=== PATIENT | female | born 1990 | race Caucasian/White ===

== ENCOUNTER → 2018-11-25 | Outpatient (CLI) | payer BC | LOC: M WUC 13:38 | PROVIDERS: ATTEND Advanced Practice Midwife | DX: O20.0 Threatened abortion (principal); Z3A.00 Weeks of gestation of pregnancy not specified ==

== ENCOUNTER → 2018-11-27 | Outpatient (REF) | payer BC | LOC: M LABDRWAD 18:25 | PROVIDERS: ATTEND Advanced Practice Midwife | DX: O20.0 Threatened abortion (principal) ==

== ENCOUNTER → 2019-01-02 | Outpatient (CLI) | payer BC ==
[2019-01-02 20:06] LABS: BASO % 0.3 % (0.0-1.0); EOS # 0.1 10^3/uL (0.0-0.50); HEMATOCRIT 39.3 % (36.0-47.0); HEMOGLOBIN 13.5 g/dl (12.0-15.5); LYMPH # 2.9 10^3/uL (1.5-6.5); LYMPH % 24.9 % (24.0-44.0); MEAN CORPUSCULAR HEMOGLOBIN 29.9 pg (27.0-33.0); MEAN CORPUSCULAR HGB CONC 34.4 g/dl (32.0-36.5); MEAN CORPUSCULAR VOLUME 87.1 fl (80.0-96.0); MONO # 0.7 10^3/uL (0.0-0.8); MONO % 5.6 % (0.0-5.0); NEUTROPHILS # 7.9 10^3/uL (1.8-7.7); NEUTROPHILS % 67.8 % (36.0-66.0); PLATELET COUNT, AUTOMATED 243 10^3/uL (150-450); RED BLOOD COUNT 4.51 10^6/uL (4.00-5.40); WHITE BLOOD COUNT 11.6 10^3/uL (4.0-10.0)
[2019-01-02 21:41] LABS: CHLAMYDIA DNA AMPLIFICATION NEGATIVE (NEGATIVE); GC DNA AMPLIFICATION NEGATIVE (NEGATIVE)
== END ==
LOC: M LABDRWAD 18:37
PROVIDERS: ATTEND Specialist
DX: Z34.01 Encounter for supervision of normal first pregnancy, first trimester (principal); Z3A.00 Weeks of gestation of pregnancy not specified

== ENCOUNTER → 2019-01-03 | Outpatient (REF) | payer BC ==
[2019-01-05 11:41] LABS: HIV 1&2 SCREEN CENTAUR NEGATIVE (NEGATIVE); RUBELLA IgG QUALITATIVE IMMUNE (IMMUNE)
== END ==
LOC: M LABDRWAD 19:31
PROVIDERS: ATTEND Specialist
DX: Z34.01 Encounter for supervision of normal first pregnancy, first trimester (principal); Z3A.01 Less than 8 weeks gestation of pregnancy

== ENCOUNTER → 2019-01-05 | Outpatient (REF) | payer BC | LOC: M LAB REF 17:17 | PROVIDERS: ATTEND Advanced Practice Midwife | DX: Z34.01 Encounter for supervision of normal first pregnancy, first trimester (principal); Z3A.00 Weeks of gestation of pregnancy not specified ==

== ENCOUNTER → 2019-02-26 | Outpatient (CLI) | payer BC ==
--- NOTE | 2019-02-27 04:00 | REP ---
Clinical: Anatomical evaluation. Comparison: None . Findings: Examination demonstrates a single live intrauterine in cephalic presentation. motion is identified by technologist. Placenta is noted posterior fundal and grade grade zero without evidence for placenta previa or abruption. Amniotic fluid volume is normal. Cervix measures 4.0 cm in length and appears closed. No evidence for nuchal cord. Gestational age by LMP 20 weeks 0 days with JONATHAN 07/16/2019 . Gestational age by current measurements 20 weeks 0 day with JONATHAN 07/16/2019 . FHR equals 160 beats per minute. BPD 4.9 cm 20 weeks 5 days HC 17.3 cm 19 weeks 6 days AC 14.8 cm 20 weeks 0 days FL 3.1 cm 19 weeks 4 days HL 3.0 cm 19 week 6 days HC/AC ratio 1.17 Estimated weight 317 grams ( 42nd percentile). Anatomical assessment demonstrates normal structures including cranium, choroid plexus, cavum, facial features, lungs, four-chamber heart/ventricular outflow tracts, diaphragm, stomach, cord insertion/three-vessel cord, bladder, and extremities. Limited evaluation of the cerebellum/posterior fossa, kidneys, and spine. Impression: Single live intrauterine in cephalic presentation demonstrating appropriate interval growth. Anatomical limitations as noted above may warrant reevaluation and follow-up. No gross abnormality identified. Electronically Signed by Leland Holden MD 02/27/2019 03:52 A
== END ==
LOC: M RAD 12:43
PROVIDERS: ATTEND Advanced Practice Midwife
DX: Z34.82 Encounter for supervision of other normal pregnancy, second trimester (principal); Z36.89 Encounter for other specified antenatal screening; Z3A.20 20 weeks gestation of pregnancy

== ENCOUNTER → 2019-03-15 | Outpatient (CLI) | payer BC ==
--- NOTE | 2019-03-15 10:30 | REP ---
Clinical: Anatomical evaluation. Comparison: 02/26/2019 . Findings: Examination demonstrates a single live intrauterine in cephalic presentation. motion is identified by technologist. Placenta is noted posterior fundal and grade grade 1 without evidence for placenta previa or abruption. Amniotic fluid volume is normal. Cervix measures 4.6 cm in length and appears closed. No evidence for nuchal cord. Gestational age by LMP 22 weeks 3 days with JONATHAN 07/16/2019 . Gestational age by current measurements 22 weeks 6 days with JONATHAN and 2019 . FHR equals 141 beats per minute. Estimated weight 538 grams ( 58 percentile). Anatomical assessment demonstrates normal structures including cranium, choroid plexus, cavum, cerebellum/posterior fossa, facial features, lungs, four-chamber heart/ventricular outflow tracts, diaphragm, stomach, cord insertion/three-vessel cord, kidneys/bladder, spine, and extremities. Impression: Single live intrauterine in cephalic presentation demonstrating appropriate interval growth. Anatomical assessment is complete and normal. No gross abnormalities are identified. Electronically Signed by Leland Holden MD 03/15/2019 10:22 A
== END ==
LOC: M RAD 09:02
PROVIDERS: ATTEND Obstetrics & Gynecology
DX: Z34.82 Encounter for supervision of other normal pregnancy, second trimester (principal); Z36.89 Encounter for other specified antenatal screening; Z3A.22 22 weeks gestation of pregnancy

== ENCOUNTER → 2019-04-21 | Outpatient (CLI) | payer BC ==
[2019-04-21 18:06] LABS: HEMATOCRIT 35.1 % (36.0-47.0); MEAN CORPUSCULAR HEMOGLOBIN 30.5 pg (27.0-33.0); MEAN CORPUSCULAR HGB CONC 34.2 g/dl (32.0-36.5); MEAN CORPUSCULAR VOLUME 89.3 fl (80.0-96.0); PLATELET COUNT, AUTOMATED 196 10^3/uL (150-450); RED BLOOD COUNT 3.93 10^6/uL (4.00-5.40); WHITE BLOOD COUNT 12.5 10^3/uL (4.0-10.0)
== END ==
LOC: M LABDRWAD 14:27
PROVIDERS: ATTEND Obstetrics & Gynecology
DX: Z34.82 Encounter for supervision of other normal pregnancy, second trimester (principal); Z3A.00 Weeks of gestation of pregnancy not specified
CPT/HCPCS: 36415; 82950; 85027; 86850; 86900; 86901; J2790

== ENCOUNTER → 2019-06-12 | Outpatient (REF) | payer BC | LOC: M LAB REF 13:38 | PROVIDERS: ATTEND Advanced Practice Midwife | DX: Z34.03 Encounter for supervision of normal first pregnancy, third trimester (principal); Z3A.00 Weeks of gestation of pregnancy not specified ==

== ENCOUNTER 2019-07-09 07:13 | Inpatient (IN) | payer BC ==
[~2019-07-09] VITALS: Ht 170.2 cm; Wt 113.1 kg
[~2019-07-09 07:13] MED LIST: VITA65TA PO; ZANT150T40 PO
[2019-07-09 07:54] VITALS: BP 125/81
[2019-07-09] MEDS ORDERED: BICITRA 30ML SOLN UDC PO ONE (08:00)
[2019-07-09] MEDS ORDERED: LR 1,000 ML IV SCH ×3 (08:00→12:30)
[2019-07-09] MEDS ORDERED: LACTATED RINGER'S 1000 ML IV ONE (08:00)
[2019-07-09 08:42] LABS: HEMATOCRIT 35.4 % (36.0-47.0); HEMOGLOBIN 11.9 g/dl (12.0-15.5); MEAN CORPUSCULAR HEMOGLOBIN 28.1 pg (27.0-33.0); MEAN CORPUSCULAR HGB CONC 33.6 g/dl (32.0-36.5); MEAN CORPUSCULAR VOLUME 83.7 fl (80.0-96.0); PLATELET COUNT, AUTOMATED 202 10^3/uL (150-450); RED BLOOD COUNT 4.23 10^6/uL (4.00-5.40); WHITE BLOOD COUNT 12.5 10^3/uL (4.0-10.0)
[2019-07-09] MEDS ORDERED: OXYTOCIN INJ 10 UNITS/ML VIAL (J2590) As Ordered ONE ×2 (08:56→11:45)
[2019-07-09] MEDS ORDERED: MORPHINE PRES-FREE INJ 10 MG/10 ML VIAL (J2274) As Ordered ONE (08:57)
[2019-07-09 09:42] VITALS: BP 120/67
[2019-07-09] MEDS ORDERED: NALBUPHINE HCL 10 MG/ML AMP (J2300) IV PRN ×2 (10:40→12:30)
[2019-07-09] MEDS ORDERED: METOCLOPRAMIDE INJ 10MG/2ML VIAL (J2765) IV PRN (10:40)
[2019-07-09] MEDS ORDERED: NALOXONE INJ 0.4 MG/1 ML VIAL (J2310) IV PRN ×2 (10:40)
[2019-07-09] MEDS ORDERED: diphenhydrAMINE INJ 50MG/ML VIAL (J1200) IV PRN (10:40)
[2019-07-09] MEDS ORDERED: ONDANSETRON 4MG/2ML VIAL (J2405) IV PRN ×3 (10:40→12:30)
[2019-07-09] MEDS ORDERED: dexameTHASONE 4 MG/ML 1ML VIAL (J1100) As Ordered ONE (11:08)
[2019-07-09] MEDS ORDERED: ONDANSETRON 4MG/2ML VIAL (J2405) As Ordered ONE (11:08)
[2019-07-09] MEDS ORDERED: KETOROLAC 60 MG/2 ML VIAL (J1885) As Ordered ONE (11:08)
[2019-07-09] MEDS ORDERED: PHENYLephrine HCL 500 MCG/5 ML (100MCG/ML) SYRINGE (J2370) As Ordered ONE (11:23)
[2019-07-09] MEDS ORDERED: OXYTOCIN DRIP 30 UNITS in APPROPRIATE DILUENT 1 EA IV SCH (12:01)
[2019-07-09] MEDS ORDERED: OXYC1TAB23 PO (12:08)
[2019-07-09] MEDS ORDERED: IBUP-1022 PO (12:09)
[2019-07-09] MEDS ORDERED: RHOGAM 300 MCG (1500 IU) INJ (J2790) IM SCH (12:15)
[2019-07-09] MEDS ORDERED: MEASLES,MUMPS,RUBELLA VACCINE INJ (MMR-II) (90707) SC SCH (12:15)
[2019-07-09] MEDS ORDERED: PERCOCET 5MG/325MG TAB PO PRN ×2 (12:15)
[2019-07-09] MEDS ORDERED: DOCUSATE SODIUM 100 MG CAP PO PRN (12:15)
[2019-07-09] MEDS ORDERED: fentaNYL 100 MCG/2 ML INJECTION (J3010) As Ordered ONE (12:28)
[2019-07-09] MEDS ORDERED: OXYTOCIN 30 UNITS IN 0.9% NaCl 500ML IV BAG (J2590) As Ordered ONE (12:29)
[2019-07-09] MEDS: fentaNYL 100 MCG/2 ML INJECTION (J3010) IV PRN ×2 (12:31→12:42)
[2019-07-09 13:35] VITALS: BP 141/86
[2019-07-09 14:05] VITALS: BP 133/76
[2019-07-09 15:02] VITALS: BP 143/88
[2019-07-09] MEDS: KETOROLAC 30 MG/ML VIAL (J1885) IV SCH (18:04)
[2019-07-09 21:59] VITALS: BP 134/83
[2019-07-10] MEDS: KETOROLAC 30 MG/ML VIAL (J1885) IV SCH ×2 (00:28→05:58)
[2019-07-10 02:28] VITALS: BP 122/66
[2019-07-10 06:04] VITALS: BP 120/74
[2019-07-10 07:12] LABS: HEMATOCRIT 28.7 % (36.0-47.0); MEAN CORPUSCULAR HEMOGLOBIN 27.7 pg (27.0-33.0); MEAN CORPUSCULAR HGB CONC 33.4 g/dl (32.0-36.5); MEAN CORPUSCULAR VOLUME 82.7 fl (80.0-96.0); PLATELET COUNT, AUTOMATED 176 10^3/uL (150-450); RED BLOOD COUNT 3.47 10^6/uL (4.00-5.40)
[2019-07-10 07:16] LABS: HEMOGLOBIN 9.6 g/dl (12.0-15.5)
--- NOTE | 2019-07-10 07:32 | IPNPDOC ---
Text Note Date of Service The patient was seen on 07/10/19. NOTE Day 1 Status post primary LTCS, uncomplicated Subjective Pain is well controlled. Lochia decreasing and minimal. Voiding spontaneously. Tolerating a regular diet. Ambulating without assistance. Denies any subjective fever/chills/nausea/vomiting/headache/visual changes/shortness of breath/chest pain. Breast feeding. Objective Vitals: Normotensive, normal heart rate, afebrile, adequate urine output. Heart: regular, rate, and rhythm. no murmurs/gallops/rubs Lungs: clear to auscultation bilaterally, no wheezes/crackles/rales/ronchi Abd: soft, nontender, nondistended, uterine fundus at 1 cm below umbilicus and firm; dressing is dry and intact Ext: no significant edema, nontender, negative Susu's bilaterally. Assessment/Plan: Postop day 1. Recovering well. Hemodynamically stable, afebrile, good pain control. -Routine care -Discharge to home -Routine infectious, fever, pain, and bleeding precautions reviewed VS,Tessy, I+O VS, Tessy, I+O Laboratory Tests 07/09/19 08:13 Red Blood Count 4.23, Mean Corpuscular Volume 83.7, Mean Corpuscular Hemoglobin 28.1, Mean Corpuscular Hemoglobin Concent 33.6, Red Cell Distribution Width 12.6 07/10/19 06:32 Red Blood Count 3.47 L, Mean Corpuscular Volume 82.7, Mean Corpuscular Hemoglobin 27.7, Mean Corpuscular Hemoglobin Concent 33.4, Red Cell Distribution Width 12.7 Vital Signs Date Time Temp Pulse Resp B/P (MAP) Pulse Ox O2 Delivery O2 Flow Rate FiO2 07/10/19 06:04 97.7 68 16 120/74 (14) 97 I&O- Last 24 Hours up to 6 AM 07/10/19 06:00 Intake Total 1720 ml Output Total 1150 ml Balance 570 ml GME ATTESTATION GME ATTESTATION My faculty preceptor for this patient encounter was physically present during the encounter and was fully available. All aspects of the patient interview, examination, medical decision making process, and medical care plan development were reviewed and approved by the faculty preceptor. The faculty preceptor is aware and concurs with the plan as stated in the body of this note and will attest to such by his/her cosignature. HERMAN PARK DO Jul 10, 2019 07:32
[2019-07-10] MEDS: PRENATAL VITAMINS CHEWABLE TABLET PO SCH (08:40)
--- NOTE | 2019-07-10 09:19 | RO ---
DATE OF PROCEDURE: 07/09/2019 PREOPERATIVE DIAGNOSIS: 39 weeks breech. POSTOPERATIVE DIAGNOSIS: 39 weeks breech. PROCEDURE: Primary low transverse section. SURGEON: Aubrey March MD CONTAINER COORDINATOR: UJSTYN Martinez DO ANESTHESIA: Spinal. ESTIMATED BLOOD LOSS: 600 mL. URINE OUTPUT: 75 mL. FINDINGS: 7 pound 8 ounce, 3390 gram male . scores of 8 and 9. Moses breech position. 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 She has normal fallopian tubes and ovaries bilaterally. She had a small uterus noted on the right side. OPERATIVE SUMMARY: The patient was taken to the operating room where spinal anesthesia was induced. She was prepped and draped in a sterile fashion in supine position. A Etienne catheter was placed. A Pfannenstiel skin incision was made with a scalpel and carried through to the fascia. The fascia was nicked and extended. The fascia was dissected off the rectus muscles. The rectus muscles were divided and the peritoneal cavity was entered. A bladder flap was created. A curvilinear incision was made in the lower uterine segment until bulging membranes were noted. This was extended manually. The was delivered from the moses breech position using standard maneuvers without difficulty. The cord was doubly clamped and cut. The infant was handed off to the awaiting nurses. The placenta was expressed. The uterus was exteriorized and cleared of clots and debris. The uterine incision was closed with #0 Vicryl in a running locked fashion. A second imbricating layer of #0 Vicryl was placed. The peritoneum was closed with #2-0 Vicryl in a running fashion. The fascia was closed with #0 Vicryl in a running fashion. The deep layer was irrigated and closed with #2-0 chromic. The skin was closed with #4-0 Monocryl subcuticular sutures. Sponges, instruments, and needles counts were correct. Martha Quintana CNM assisted throughout the procedure, she helped created all layers of the incision. She helped create the hysterotomy and delivered the fetus. She helped closed all subsequent layers.
[2019-07-10 10:00] VITALS: BP 134/84
[2019-07-10 14:00] VITALS: BP 126/82
[2019-07-10] MEDS: IBUPROFEN 800 MG TAB PO SCH ×2 (14:02→21:53)
[2019-07-10 18:04] VITALS: BP 125/73
[2019-07-10 22:08] VITALS: BP 133/63
[2019-07-11 06:02] VITALS: BP 118/73
[2019-07-11] MEDS: IBUPROFEN 800 MG TAB PO SCH (06:10)
[2019-07-11] MEDS: PRENATAL VITAMINS CHEWABLE TABLET PO SCH (09:26)
== END 2019-07-11 12:21 | disposition home or self-care (01) | DRG 540 ==
LOC: M LDI 07:13 → M OBS 13:24
PROVIDERS: ADMIT Specialist; ATTEND Specialist
PROC: 10D00Z1 Extraction of Products of Conception, Low, Open Approach (ICD-10-PCS; principal; 2019-07-09 09:30)
DX: O32.1XX0 Maternal care for breech presentation, not applicable or unspecified (principal); Z3A.39 39 weeks gestation of pregnancy; Z37.0 Single live birth

== ENCOUNTER 2019-09-02 22:11 | Emergency (ER) | payer BC ==
[~2019-09-02] VITALS: Ht 170.2 cm; Wt 93.2 kg
[~2019-09-02 22:11] MED LIST changes: +IBUP-1022 PO; +OXYC1TAB23 PO
[2019-09-02 22:12] VITALS: BP 147/88
[2019-09-02] MEDS ORDERED: OMEP10CASR PO (22:16)
[2019-09-02 22:52] LABS: BASO % 0.3 % (0.0-1.0); EOS # 0.5 10^3/uL (0.0-0.5); HEMATOCRIT 43.3 % (36.0-47.0); HEMOGLOBIN 13.8 g/dl (12.0-15.5); LYMPH # 3.9 10^3/uL (1.5-5.0); LYMPH % 41.6 % (24.0-44.0); MEAN CORPUSCULAR HEMOGLOBIN 26.9 pg (27.0-33.0); MEAN CORPUSCULAR HGB CONC 31.9 g/dl (32.0-36.5); MEAN CORPUSCULAR VOLUME 84.4 fl (80.0-96.0); MONO # 0.7 10^3/uL (0.0-0.8); MONO % 7.3 % (0.0-5.0); NEUTROPHILS # 4.3 10^3/uL (1.5-8.5); NEUTROPHILS % 45.6 % (36.0-66.0); PLATELET COUNT, AUTOMATED 273 10^3/uL (150-450); RED BLOOD COUNT 5.13 10^6/uL (4.00-5.40); WHITE BLOOD COUNT 9.4 10^3/uL (4.0-10.0)
[2019-09-02 23:12] LABS: ALBUMIN 3.9 GM/DL (3.2-5.2); ALT/SGPT 16 U/L (12-78); BILIRUBIN,DIRECT < 0.1 MG/DL (0.0-0.2); BILIRUBIN,TOTAL 0.8 MG/DL (0.2-1.0); BLOOD UREA NITROGEN 14 MG/DL (7-18); CALCIUM LEVEL 8.6 MG/DL (8.5-10.1); CARBON DIOXIDE LEVEL 27 MEQ/L (21-32); CHLORIDE LEVEL 109 MEQ/L (98-107); CREATININE FOR GFR 0.91 MG/DL (0.55-1.30); GLOMERULAR FILTRATION RATE > 60.0 (>60); GLUCOSE, FASTING 104 MG/DL (70-100); LIPASE 136 U/L (73-393); POTASSIUM SERUM 4.2 MEQ/L (3.5-5.1); SODIUM LEVEL 142 MEQ/L (136-145); TOTAL PROTEIN 7.6 GM/DL (6.4-8.2)
[2019-09-02] MEDS ORDERED: ISOVUE-370 76% 100ML VIAL (Q9967) As Ordered ONE (23:30)
[2019-09-02] MEDS: GASTROGRAFIN SOLUTION 30ML PO SCH (23:53)
--- NOTE | 2019-09-03 00:02 | REPVR ---
PROCEDURE INFORMATION: Exam: CT Abdomen And Pelvis With Contrast Exam date and time: 09/02/2019 11:34 PM Clinical history: 29 years old, female; Abdominal pain; Localized; Upper; Additional info: Upper abd pain TECHNIQUE: Imaging protocol: Computed tomography of the abdomen and pelvis with intravenous contrast. Radiation optimization: All CT scans at this facility use at least one of these dose optimization techniques: automated exposure control; mA and/or kV adjustment per patient size (includes targeted exams where dose is matched to clinical indication); or iterative reconstruction. Contrast material: ISOVUE 370; Contrast volume: 100 ml; Contrast route: IV; COMPARISON: US OBS FOLL UP OR REPEAT EACH GES 03/15/2019 9:00 AM FINDINGS: Lungs: The imaged lung bases are clear. Heart: No cardiomegaly. There is a trace amount of fluid in the pericardial sac. Liver: No liver lesion is seen. The contour of the liver is smooth. The liver is enlarged and measures 17.2 cm in craniocaudal dimension at the level of the right midclavicular line. Gallbladder and bile ducts: No calcified gallstones are seen in the gallbladder. However, there is a 3 mm calcified gallstone in the cystic duct (image 49 of the coronal series 202 and image 60 of the sagittal series 203). There is a small amount of pericholecystic fluid and pericholecystic inflammatory fat stranding. These findings are compatible with acute cholecystitis. No dilation of the intrahepatic or extrahepatic bile ducts is noted. The common bile duct is normal in caliber and measures 5 mm in diameter. No calcified gallstones are seen in the common bile duct. Pancreas: Normal. No ductal dilation. Spleen: Normal. No splenomegaly. Adrenals: Normal. No mass. Kidneys and ureters: The kidneys are normal in appearance. No renal lesion is identified. No calculi are seen in the kidneys or ureters. There is no hydronephrosis or hydroureter. There are no wedge-shaped areas of low attenuation in the kidneys to suggest pyelonephritis. There is no renal abscess or perinephric fluid collection. Stomach and bowel: There is no evidence for a bowel obstruction, diverticulosis, diverticulitis, colitis, pneumatosis intestinalis, intussusception, volvulus, or perforated viscus. Appendix: Normal. No evidence for appendicitis. Intraperitoneal space: Unremarkable. No fluid collection. No free air. Retroperitoneal space: Unremarkable. No fluid collection. No mass. Vasculature: The abdominal aorta is patent, normal in caliber, and there is no dissection. The renal arteries, celiac artery, superior mesenteric artery, inferior mesenteric artery, iliac arteries, and common femoral arteries are patent. The iliac veins, inferior vena cava, hepatic veins, portal veins, splenic vein, superior mesenteric vein, inferior mesenteric vein, and renal veins are patent. Lymph nodes: Normal. No enlarged lymph nodes. Bladder: Unremarkable. No calculi or masses are noted in the bladder. Reproductive: The uterus is anterverted and unremarkable. The ovaries are unremarkable. Bones/joints: The imaged bony structures are intact. There is no suspicious osteolytic or osteoblastic lesion. There is a lumbosacral transitional vertebra, and there is broadening of the both transverse proceses of the lumbosacral transitional vertebra, which are fused to both sides of the sacrum (Castellvi type IIIb lumbosacral transitional vertebra). Soft tissues: There is a tiny fat containing umbilical hernia. IMPRESSION: 1. Acute cholecystitis. 2. Hepatomegaly. Electronically signed by: Andrea Martinez On 09/03/2019 00:01:57 AM
[2019-09-03] MEDS: GASTROGRAFIN SOLUTION 30ML PO SCH (00:16)
[2019-09-03] MEDS ORDERED: NORC1TAB7 PO (01:22)
[2019-09-03] MEDS ORDERED: AUGM875T28 PO (01:22)
[2019-09-03] MEDS ORDERED: AUGMENTIN 875 MG TAB PO ONE (01:30)
--- NOTE | 2019-09-03 07:06 | ED PDOC ---
Post-Departure Follow-Up radiology report faxed to Ashley Gann MD Sep 03, 2019 07:06
== END 2019-09-03 01:37 | disposition home or self-care (01) ==
LOC: M ED 22:11
DX: K80.42 Calculus of bile duct with acute cholecystitis without obstruction (principal); R16.0 Hepatomegaly, not elsewhere classified; Z79.2 Long term (current) use of antibiotics; Z79.899 Other long term (current) drug therapy
CPT/HCPCS: 36415; 74177; 80048; 80076; 81001; 83690; 85025; 87086; 99284; Q9967

== ENCOUNTER 2019-09-24 12:23 | Day surgery (SDC) | payer BC, OTHER ==
[~2019-09-24] VITALS: Ht 170.2 cm; Wt 94.8 kg
[~2019-09-24 12:23] MED LIST changes: +AMPICILLIN SOD/SULBACTAM SOD 3 GM in D5W MINI-BAG PLUS 100 ML IV ONE; +AUGM875T28 PO; +LR 1,000 ML IV ONE; +NORC1TAB7 PO; +OMEP10CASR PO
[2019-09-24] MEDS ORDERED: LIDOCAINE 1% SDV INJ 30 ML VIAL As Ordered ONE (14:10)
[2019-09-24] MEDS ORDERED: BUPIVACAINE HCL 0.25% 30 ML VIAL As Ordered ONE (14:10)
[2019-09-24] MEDS ORDERED: MIDAZOLAM INJ 2 MG/2 ML VIAL (J2250) As Ordered ONE (15:34)
[2019-09-24] MEDS ORDERED: fentaNYL 100 MCG/2 ML INJECTION (J3010) As Ordered ONE ×2 (15:35→17:22)
[2019-09-24] MEDS ORDERED: PROPOFOL 200 MG/20 ML VIAL As Ordered ONE (15:37)
[2019-09-24] MEDS ORDERED: ROCURONIUM BROMIDE 50 MG/5 ML VIAL As Ordered ONE ×2 (15:37→17:25)
[2019-09-24] MEDS ORDERED: ONDANSETRON 4MG/2ML VIAL (J2405) As Ordered ONE (15:37)
[2019-09-24] MEDS ORDERED: dexameTHASONE 4 MG/ML 1ML VIAL (J1100) As Ordered ONE (15:37)
[2019-09-24] MEDS ORDERED: LIDOCAINE 2% INJ 100 MG/5 ML SDV (FOR ANES.) As Ordered ONE (15:37)
[2019-09-24] MEDS ORDERED: ACETAMINOPHEN 1000MG 100ML IV BTL (OFIRMEV) (J0131 PER 10MG) As Ordered ONE (17:18)
[2019-09-24] MEDS ORDERED: SUGAMMADEX SODIUM 500 MG/5 ML VIAL (BRIDION) As Ordered ONE (17:38)
[2019-09-24] MEDS ORDERED: KETOROLAC 60 MG/2 ML VIAL (J1885) As Ordered ONE (17:56)
[2019-09-24] MEDS ORDERED: LR 1,000 ML IV SCH (18:30)
[2019-09-24] MEDS ORDERED: HYDROMORPHONE HCL 0.5 MG/ 0.5 ML SYRINGE (J1170 PER 1) IV PRN (18:30)
[2019-09-24] MEDS ORDERED: NORCO, ANEXSIA 5/325MG TABLET (HYDROcodone/ACETAMINOPHEN) PO PRN ×2 (18:30→18:45)
[2019-09-24] MEDS ORDERED: METOCLOPRAMIDE INJ 10MG/2ML VIAL (J2765) IV PRN (18:30)
[2019-09-24] MEDS: fentaNYL 100 MCG/2 ML INJECTION (J3010) IV PRN ×4 (18:30→19:00)
[2019-09-24] MEDS ORDERED: ONDANSETRON 4MG/2ML VIAL (J2405) IV PRN ×2 (18:30→18:45)
[2019-09-24] MEDS: PERCOCET 5MG/325MG TAB PO PRN ×2 (18:45→19:22)
[2019-09-24 21:00] VITALS: BP 110/81
[2019-09-25] MEDS ORDERED: KETOROLAC 30 MG/ML VIAL (J1885) IV PRN
--- NOTE | 2019-09-25 13:06 | ROOPDOC ---
[facility] Report Of Operation Report of Operation DATE OF PROCEDURE: 09/24/19 PREPROCEDURE DIAGNOSES: Cholelithiasis, history of acute cholecystitis. POSTPROCEDURE DIAGNOSES: Cholelithiasis, chronic cholecystitis. PROCEDURE: Laparoscopic cholecystectomy. SURGEON: Oziel Winkler MD CORPORATE PHYSICAL SECURITY SUPERVISOR: ANESTHESIA: Gen. anesthesia. ESTIMATED BLOOD LOSS: Approximately 10 mL. COMPLICATIONS: None. REMARKS: 29-year-old female who is a recent via section in June who was seen in early August for acute cholecystitis. She has recovered from that since being brought to the OR today for laparoscopic cholecystectomy. PROCEDURE NOTE: Moderately distended, chronically thick walled gallbladder with multiple stones lodged at the gallbladder cystic duct junction. DESCRIPTION OF PROCEDURE: Patient was given a dose Unasyn 3 g IV preoperatively for prophylaxis. She was brought to the operating room, laid supine on the table, compression boots placed for DVT prophylaxis. General endotracheal anesthesia started. Her abdomen then prepped and draped in usual sterile fashion. Surgical timeout was performed prior to starting surgery. Entry into the abdomen done through an incision above the umbilicus. A Veress needle was inserted with a controlled fashion. CO2 insufflation started to pressure 15 mmHg. Using the same incision a 5 mm Visiport was placed under direct vision laparoscope. The area underneath the insertion site was inspected and no injury found. She was then placed in steep reverse Trendelenburg. Her right side was tilted up to further expose the gallbladder. Under direct vision a 11 mm epigastric port and Two 5 mm working ports placed along the right subcostal line. Operative findings: Her liver is noted to be smooth in contour no nodularities or lesions found. Her gallbladder is mildly thickened, mildly distended. No acute inflammation found. The fundus of the gallbladder was grasped and the gallbladder was elevated superiorly exposing the neck of the gallbladder. The peritoneum overlying the area was opened up and dissected free both anteriorly and posteriorly to help with retraction of the gallbladder. The hepatocystic triangle was approached and dissected using a [place] and instrument. The cystic duct was identified coming off from the next gallbladder this was circumferentially dissected. The cystic artery was identified in its usual position medially behind a small lymph node of Calot. This was similarly circumferentially dissected off surrounding adipose tissue. We continued posterior dissection proximally at the next gallbladder until a critical view of safety was achieved whereby only the previously identified duct and artery coursing through the neck the gallbladder. At this point the cystic artery was clipped 4 times and divided. After again checking her anatomy and verifying that the previously identified cystic duct, this was also clipped 4 times and divided. The rest of the gallbladder was then dissected free of the gallbladder bed using Bovie cautery. There was minimal bleeding at the lateral gallbladder attachments to the liver capsule this was easily controlled with Bovie cautery. The gallbladder was then placed in an Endo Catch bag and retrieved outside through the epigastric port site. After re-i nsufflation and inspected the clips and noted this to be in place. No further bleeding noted. No bile leakage noted. The abdomen was deflated all ports were removed. The epigastric fascial defect repaired with 0 Vicryl in a mattress fashion. Rest of the skin incisions closed with 4-0 Monocryl in subcuticular fashion. Steri-Strips and gauze dressings were placed, the wound. Patient was informed they awakened, extubated and brought to recovery room stable OZIEL WINKLER MD Sep 25, 2019 13:06
== END 2019-09-24 21:25 | disposition home or self-care (01) ==
LOC: M SDC 12:23
PROVIDERS: ATTEND Surgery
DX: K80.10 Calculus of gallbladder with chronic cholecystitis without obstruction (principal)
CPT/HCPCS: 47562; 81025; 88304; J0131; J1100; J1885; J2250; J2405; J2765; J3010

== ENCOUNTER → 2022-04-05 | Outpatient (CLI) | payer OTHER ==
[~2022-04-05] MED LIST changes: -AMPICILLIN SOD/SULBACTAM SOD 3 GM in D5W MINI-BAG PLUS 100 ML IV ONE; -LR 1,000 ML IV ONE
== END ==
LOC: M WHC 09:40
PROVIDERS: ATTEND Obstetrics & Gynecology
DX: Z34.80 Encounter for supervision of other normal pregnancy, unspecified trimester (principal)

== ENCOUNTER → 2022-06-07 | Outpatient (CLI) | payer OTHER | LOC: M WHC 11:59 | PROVIDERS: ATTEND Obstetrics & Gynecology | DX: Z34.90 Encounter for supervision of normal pregnancy, unspecified, unspecified trimester (principal); Z3A.20 20 weeks gestation of pregnancy ==

== ENCOUNTER → 2022-06-21 | Outpatient (CLI) | payer OTHER | LOC: M WHC 10:28 | PROVIDERS: ATTEND Specialist | DX: Z34.82 Encounter for supervision of other normal pregnancy, second trimester (principal); Z3A.24 24 weeks gestation of pregnancy ==

== ENCOUNTER → 2022-07-08 | Outpatient (REF) | payer OTHER ==
[2022-07-08 13:53] LABS: HEMATOCRIT 36.2 % (36.0-47.0); HEMOGLOBIN 12.1 g/dl (12.0-15.5); MEAN CORPUSCULAR HEMOGLOBIN 28.9 pg (27.0-33.0); MEAN CORPUSCULAR HGB CONC 33.4 g/dl (32.0-36.5); MEAN CORPUSCULAR VOLUME 86.6 fl (80.0-96.0); PLATELET COUNT, AUTOMATED 229 10^3/uL (150-450); RED BLOOD COUNT 4.18 10^6/uL (4.00-5.40); WHITE BLOOD COUNT 10.7 10^3/uL (4.0-10.0)
[2022-07-08 16:05] LABS: GC DNA AMPLIFICATION NEGATIVE (NEGATIVE)
== END ==
LOC: M LABDRWAD 12:45
PROVIDERS: ATTEND Specialist
DX: Z34.82 Encounter for supervision of other normal pregnancy, second trimester (principal)
CPT/HCPCS: 36415; 82950; 85027; 86850; 86900; 86901; 87810; 87850; J2790

== ENCOUNTER 2022-08-16 21:15 | Outpatient (CLI) | payer OTHER ==
[~2022-08-16] VITALS: Ht 172.7 cm; Wt 113.1 kg
[2022-08-16] MEDS ORDERED: HOME MED LIST COMPLETE! XX SCH (21:30)
[2022-08-16] MEDS ORDERED: CALC500C15 PO (21:31)
[2022-08-16 21:34] VITALS: BP 131/87
[2022-08-16 22:08] LABS: APPEARANCE, URINE MANUAL HAZY (CLEAR); COLOR, URINE MANUAL YELLOW (YELLOW)
[2022-08-16 22:09] LABS: BILIRUBIN, URINE MANUAL NEGATIVE (NEGATIVE); BLOOD URINE MANUAL POSITIVE (NEGATIVE); GLUCOSE, URINE (UA) MANUAL NEGATIVE (NEGATIVE); KETONE, URINE MANUAL NEGATIVE (NEGATIVE); LEUKOCYTE ESTERASE, URINE MAN POSITIVE (NEGATIVE); NITRITE, URINE MANUAL NEGATIVE (NEGATIVE); PROTEIN, URINE MANUAL NEGATIVE (NEGATIVE); UROBILINOGEN, URINE MANUAL NORMAL (NORMAL)
[2022-08-16 22:24] LABS: CALCIUM OXALATE CRYSTALS,URINE SMALL AMOUNT /hpf; SQUAMOUS EPITHELIAL CELL URINE MOD AMOUNT /hpf (SMALL AMT); TRANSITIONAL EPI CELLS, URINE MOD AMOUNT /hpf
[2022-08-16 22:25] LABS: AMORPHOUS SEDIMENT, URINE SMALL AMOUNT (NEGATIVE); BACTERIA, URINE SMALL AMOUNT; HYALINE CAST, URINE NONE SEEN /lpf (0-1)
[2022-08-16] MEDS ORDERED: LIDOCAINE VISCOUS 2% SOLN 15ML UDC TOP ONE (22:25)
[2022-08-16 23:21] VITALS: BP 126/80
== END 2022-08-17 01:42 | disposition home or self-care (01) ==
LOC: M LDO 21:15
PROVIDERS: ATTEND Advanced Practice Midwife
DX: O60.03 Preterm labor without delivery, third trimester (principal); O26.853 Spotting complicating pregnancy, third trimester; O34.219 Maternal care for unspecified type scar from previous cesarean delivery; O34.03 Maternal care for unspecified congenital malformation of uterus, third trimester; O26.893 Other specified pregnancy related conditions, third trimester; Z3A.30 30 weeks gestation of pregnancy
CPT/HCPCS: 59025; 76815; 76817; 76820; 81000; 87070; 87086; G0463

== ENCOUNTER → 2022-09-28 | Outpatient (REF) | payer OTHER ==
[~2022-09-28] MED LIST changes: +CALC500C15 PO
== END ==
LOC: M PLALAB 11:21
PROVIDERS: ATTEND Advanced Practice Midwife
DX: Z34.83 Encounter for supervision of other normal pregnancy, third trimester (principal)

== ENCOUNTER 2022-10-14 05:57 | Inpatient (IN) | payer OTHER ==
[~2022-10-14] VITALS: Ht 170.2 cm; Wt 116.4 kg
[2022-10-14] VITALS (9 sets, daily range): BP systolic 104–139; BP diastolic 55–84
[2022-10-14] MEDS ORDERED: LR 1,000 ML IV SCH ×3 (06:00→09:25)
[2022-10-14] MEDS ORDERED: BICITRA 30ML SOLN UDC PO ONE (06:15)
[2022-10-14] MEDS ORDERED: ceFAZolin SOD 2 GM in IV 1 EA IV ONE (06:15)
[2022-10-14] MEDS ORDERED: LR 800 ML IV ONE (06:15)
[2022-10-14] MEDS ORDERED: HOME MED LIST COMPLETE! XX SCH (06:45)
[2022-10-14 06:52] LABS: HEMATOCRIT 36.4 % (36.0-47.0); MEAN CORPUSCULAR HEMOGLOBIN 27.1 pg (27.0-33.0); MEAN CORPUSCULAR VOLUME 82.2 fl (80.0-96.0); PLATELET COUNT, AUTOMATED 226 10^3/uL (150-450); RED BLOOD COUNT 4.43 10^6/uL (4.00-5.40); WHITE BLOOD COUNT 10.9 10^3/uL (4.0-10.0)
[2022-10-14] MEDS ORDERED: ACETAMINOPHEN TAB 650MG DOSE (2X325MG) PO PRN (09:20)
[2022-10-14] MEDS ORDERED: IBUPROFEN 800 MG TAB PO PRN (09:20)
[2022-10-14] MEDS ORDERED: METHYLERGONOVINE MALEATE 0.2 MG TAB PO PRN (09:20)
[2022-10-14] MEDS ORDERED: DIBUCAINE 1% OINTMENT 30GM TOP PRN (09:20)
[2022-10-14] MEDS ORDERED: RHOGAM 300MCG (1500IU) INJ IM SCH (09:20)
[2022-10-14] MEDS ORDERED: DOCUSATE SODIUM 100MG CAPSULE PO PRN (09:20)
[2022-10-14] MEDS ORDERED: OXYTOCIN DRIP 30 UNITS in IV 1 EA IV ONE (09:20)
[2022-10-14] MEDS ORDERED: IBUPROFEN 600MG TAB PO PRN (09:20)
[2022-10-14] MEDS ORDERED: ONDANSETRON 4MG 2ML VIAL IV PRN ×2 (09:20→09:25)
[2022-10-14] MEDS ORDERED: PERCOCET 5MG/325MG TAB PO PRN ×2 (09:25)
[2022-10-14] MEDS ORDERED: METOCLOPRAMIDE INJ 10MG/2ML VIAL IV PRN ×2 (09:25)
[2022-10-14] MEDS ORDERED: NALOXONE INJ 0.4MG/1ML VIAL IV PRN ×4 (09:25)
[2022-10-14] MEDS ORDERED: diphenhydrAMINE 50MG/ML VIAL IV PRN ×2 (09:25)
[2022-10-14] MEDS ORDERED: OXYTOCIN 30UNITS IN 0.9% NaCl 500ML IV BAG As Ordered ONE (09:25)
[2022-10-14] MEDS ORDERED: **NOTE PATIENT COMMENT** MISC XX SCH ×2 (09:25)
[2022-10-14] MEDS: SLF 3 ML SYR IV SCH ×4 (09:25→17:25)
[2022-10-14] MEDS ORDERED: MEPERIDINE INJ 25 MG/ML VIAL IV PRN (09:25)
[2022-10-14] MEDS ORDERED: fentaNYL 100 MCG/2 ML INJECTION IV PRN (09:25)
[2022-10-14] MEDS ORDERED: IBUP80TA PO (12:25)
[2022-10-14] MEDS ORDERED: OXYC1TAB23 PO (12:25)
[2022-10-14] MEDS: LR 1,000 ML IV SCH (12:26)
[2022-10-14] MEDS: KETOROLAC 30 MG/ML 1ML VIAL IV SCH ×2 (15:13→21:25)
[2022-10-15] MEDS: LR 1,000 ML IV SCH (01:25)
[2022-10-15 02:20] VITALS: BP 116/72
[2022-10-15] MEDS: KETOROLAC 30 MG/ML 1ML VIAL IV SCH (02:44)
[2022-10-15 06:00] VITALS: BP 116/77
[2022-10-15] MEDS: PRENATAL VITAMINS CHEWABLE TABLET PO SCH (08:45)
[2022-10-15] MEDS: ACETAMINOPHEN 500 MG TAB PO PRN ×2 (08:45→15:15)
[2022-10-15 10:00] VITALS: BP 118/69
[2022-10-15] MEDS ORDERED: IBUPROFEN 600MG TAB PO PRN (11:00)
[2022-10-15] MEDS: IBUPROFEN 800 MG TAB PO PRN ×2 (11:00→21:33)
[2022-10-15 14:00] VITALS: BP 124/71
[2022-10-15 18:00] VITALS: BP 121/67
[2022-10-15 22:00] VITALS: BP 129/68
[2022-10-16] MEDS: ACETAMINOPHEN 500 MG TAB PO PRN (00:54)
[2022-10-16 06:00] VITALS: BP 126/61
[2022-10-16] MEDS: PRENATAL VITAMINS CHEWABLE TABLET PO SCH (08:27)
[2022-10-16] MEDS: IBUPROFEN 800 MG TAB PO PRN (08:27)
[2022-10-16] MEDS ORDERED: MEASLES,MUMPS,RUBELLA VACCINE INJ (MMR-II) SC.IMMUN ONE (09:00)
[2022-10-16] MEDS ORDERED: PERCOCET PO (14:47)
== END 2022-10-16 15:06 | disposition home or self-care (01) | DRG 540 ==
LOC: M LDI 05:57 → M OBS 11:04
PROVIDERS: ADMIT Specialist; ATTEND Specialist
PROC: 10D00Z1 Extraction of Products of Conception, Low, Open Approach (ICD-10-PCS; principal; 2022-10-14 07:30)
DX: O34.211 Maternal care for low transverse scar from previous cesarean delivery (principal); O32.1XX0 Maternal care for breech presentation, not applicable or unspecified; O13.4 Gestational [pregnancy-induced] hypertension without significant proteinuria, complicating childbirth; Z3A.38 38 weeks gestation of pregnancy; O34.03 Maternal care for unspecified congenital malformation of uterus, third trimester; O69.81X0 Labor and delivery complicated by cord around neck, without compression, not applicable or unspecified; Z37.0 Single live birth

== ENCOUNTER → 2025-01-23 | Outpatient (REF) | payer OTHER ==
[~2025-01-23] MED LIST changes: +IBUP80TA PO; +PERCOCET PO
== END ==
LOC: M LAB REF 11:52
PROVIDERS: ATTEND Internal Medicine
DX: R63.5 Abnormal weight gain (principal); Z13.29 Encounter for screening for other suspected endocrine disorder

== ENCOUNTER → 2025-02-28 | Outpatient (REF) | payer OTHER ==
[2025-02-28 13:34] LABS: FOLATE 20.1 NG/ML (>5.4)
== END ==
LOC: M LAB REF 11:58
PROVIDERS: ATTEND Physician Assistant Medical
DX: D51.9 Vitamin B12 deficiency anemia, unspecified (principal); R53.83 Other fatigue

== ENCOUNTER → 2025-05-07 | Outpatient (REF) | payer OTHER ==
[2025-05-07 15:46] LABS: THYROID PEROXIDASE ANTIBODY < 28.0 U/ML (<60.0)
[2025-05-07 15:47] LABS: THYROGLOBULIN ANTIBODY 17.0 U/ML (<60.0)
== END ==
LOC: M LAB REF 14:58
PROVIDERS: ATTEND Physician Assistant Medical
DX: E04.9 Nontoxic goiter, unspecified (principal); R53.83 Other fatigue

== ENCOUNTER → 2025-05-15 | Outpatient (CLI) | payer OTHER | LOC: M RAD 09:36 | PROVIDERS: ATTEND Physician Assistant Medical | DX: Z86.39 Personal history of other endocrine, nutritional and metabolic disease (principal); Z80.8 Family history of malignant neoplasm of other organs or systems ==